=== PATIENT | female | born 1955 | race Caucasian/White ===

== ENCOUNTER → 2019-01-14 | Outpatient (CLI) | payer OTHER ==
[2019-01-14 10:22] LABS: ABSOLUTE NEUTROPHILS 3.3 thou/uL (1.4-8.2); BASOPHILS 1.1 % (0.0-2.0); HEMATOCRIT 38.5 % (37.0-47.0); HEMOGLOBIN 13.1 gm/dL (12.0-15.0); LYMPHOCYTES 23.7 % (24.0-44.0); MCH 31.6 pg (26.0-34.0); MCHC 33.9 g/dL (28.0-37.0); MCV 93.1 fL (80.0-100.0); MONOCYTES 8.4 % (1.0-8.0); PLATELET COUNT 197 thou/uL (150-400); POLYS 59.8 % (36.0-66.0); RBC 4.14 mil/uL (4.20-5.00); RDW 13.4 % (10.5-14.5); WBC 5.5 thou/uL (4.0-11.0)
[2019-01-14 10:40] LABS: ALBUMIN 4.1 g/dL (3.4-5.0); CREATININE 0.9 mg/dL (0.6-1.0); TOTAL BILIRUBIN 0.3 mg/dL (<0.1-1.0); TOTAL PROTEIN 6.3 g/dL (6.4-8.2)
== END ==
LOC: CAT 09:45
PROVIDERS: Internal Medicine Cardiovascular Disease
DX: I48.91 Unspecified atrial fibrillation (principal); J84.10 Pulmonary fibrosis, unspecified; R59.9 Enlarged lymph nodes, unspecified

== ENCOUNTER 2019-01-25 06:45 | Observation (INO) | payer OTHER ==
[~2019-01-25] VITALS: Ht 172.7 cm; Wt 73.5 kg
[2019-01-25] VITALS (12 sets, daily range): BP systolic 112–132; BP diastolic 65–80
[2019-01-25 07:30] LABS: ABSOLUTE NEUTROPHILS 2.5 thou/uL (1.4-8.2); BASOPHILS 1.4 % (0.0-2.0); HEMATOCRIT 36.8 % (37.0-47.0); HEMOGLOBIN 12.8 gm/dL (12.0-15.0); LYMPHOCYTES 28.4 % (24.0-44.0); MCH 31.9 pg (26.0-34.0); MCHC 34.7 g/dL (28.0-37.0); MONOCYTES 9.2 % (1.0-8.0); PLATELET COUNT 180 thou/uL (150-400); RBC 4.01 mil/uL (4.20-5.00); RDW 13.1 % (10.5-14.5); WBC 4.8 thou/uL (4.0-11.0)
[2019-01-25 07:35] LABS: CALCIUM 8.8 mg/dL (8.5-10.1); POTASSIUM 4.1 mmol/L (3.5-5.1)
[2019-01-25 07:42] LABS: TOTAL BILIRUBIN 0.4 mg/dL (<0.1-1.0); TOTAL PROTEIN 6.5 g/dL (6.4-8.2)
[2019-01-25 07:43] LABS: APTT 28.9 Seconds (24.5-32.8); PROTIME 10.9 Seconds (9.3-11.4)
[2019-01-25] MEDS ORDERED: ELIQUIS5 MG PO (07:47)
[2019-01-25] MEDS ORDERED: LAMOTRIGINE150 MG PO (07:49)
[2019-01-25] MEDS ORDERED: COZAAR 25 MG TA25 M2 PO (07:50)
[2019-01-25] MEDS ORDERED: METOPROLOL SUCC25 M1 PO (07:51)
[2019-01-25] MEDS ORDERED: TRILEPTAL300 MG PO (07:51)
[2019-01-25] MEDS ORDERED: PAXIL10 MG PO (07:53)
[2019-01-25] MEDS ORDERED: LYRICA 75 MG CA75 MG PO (07:55)
[2019-01-25] MEDS ORDERED: SEROQUEL 50 MG50 MG PO (07:56)
--- NOTE | 2019-01-25 19:43 | NUR ---
RECIEVED VIA BED, ALERT AND ORIENTED X4. VSS AND SR ON THE MONITOR. RT GRION DCI. PATIENT TOLERATED DIET WELL.CASPER D/CIED. AND WILL CONTINUE WITH POC.
[2019-01-26 00:40] VITALS: BP 122/95
[2019-01-26 04:54] VITALS: BP 134/85
--- NOTE | 2019-01-26 06:16 | NUR ---
ASSUME CARE 1900. PT/VITALS STABLE. DENIES ANY PAIN. UP AD PANCHO. ADEQUATE REST NOTED THROUGHT THE NIGHT. PT SR THROUGHOUT NIGHT POST ABLATION. RIGHT GROIN WITH MILD BRUISING AND DRAINAGE. SITE IS SOFT WITH NO HEMATOMA. WILL CONTINUE TO MONITOR AND FOLLOW WITH POC. PLAN IS POSSIBLE DISCHARGE HOME TODAY
[2019-01-26 07:18] VITALS: BP 140/76
[2019-01-26 10:12] VITALS: BP 140/76
--- NOTE | 2019-01-26 10:51 | NUR ---
ASSUMED CARE AT SHIFT CHANGE, ALERT AND ORIENTED X4. S/B DR SILVESTRE. DISCHARGE AND MEDICATIONS INSTRUCTIONS GIVEN TO PATIENT, AND PATIENT VERBALIZED UNDERSTANDING. AND PATIENT DISCHARGING HOME.
--- NOTE | 2019-02-01 14:17 | D ---
[facility] [place] [address] DISCHARGE SUMMARY Name: KARELY SCHNEIDER Room #: 214-P [facility] Richard Ruby#: [id number] Admission: 01/25/19 ������������������ Attend Phys: Serafin Roger MD Discharge: 01/26/19 ������������������ Date of : 51 Report #: [id number] THIS REPORT FOR: //name// CC: Serafin Roger Chasity Wilkerson DATE OF SERVICE: 01/26/2019 DISCHARGE DIAGNOSES: 1. Atrial fibrillation. 2. Atrial flutter. PROCEDURES PERFORMED: 1. Atrial fibrillation ablation. 2. Atrial flutter ablation. HISTORY OF PRESENT ILLNESS: The patient is a 63-year-old female with history of AFib, atrial flutter despite medical therapy who is here for an ablation. She underwent successful AFib ablation and atrial flutter ablation. HOSPITAL COURSE: She was monitored in the CCU overnight. She did well with no issues. On the day of discharge, she denied any chest pain, shortness of breath or groin discomfort. PHYSICAL EXAMINATION: GENERAL: No acute distress. CARDIOVASCULAR: Regular rate and rhythm with no murmurs, rubs, or gallops. LUNGS: Clear to auscultation bilaterally. ABDOMEN: Soft, nontender. EXTREMITIES: There is no clubbing, cyanosis, edema and her right groin showed no significant hematoma and some mild bruising. VITAL SIGNS: Her vitals were stable and on telemetry she remained in sinus rhythm throughout the evening. As such, she was deemed stable for discharge home with instructions to follow up with my nurse practitioner in 2 weeks and with me in 3 months. I have discussed her CT scan findings and I have recommended that she follow up with her primary care physician who can set her up to see Pulmonary for further evaluation. She will be discharged on her same home medications, which includes Eliquis therapy and metoprolol. ��������������������������������������������� <ELECTRONICALLY SIGNED> ���������������������������������������� By: Serafin Roger MD ��������������������������������������������� 02/01/19 1417 [id number] Serafin Roger MD /nt
--- NOTE | 2019-02-15 14:32 | P ---
[facility] [place] [address] PROCEDURE REPORT Name: KARELY SCHNEIDER Room #: 214-P [facility] Richard Ruby#: [id number] Admission: 01/25/19 ������������������ Attend Phys: Serafin Roger MD Discharge: 01/26/19 ������������������ Date of : 51 Report #: [id number] THIS REPORT FOR: //name// CC: Serafin Roger Chasity Nancyrhona PREOPERATIVE DIAGNOSIS: Atrial fibrillation. POSTOPERATIVE DIAGNOSES: Atrial fibrillation and atrial flutter. PROCEDURES PERFORMED: 1. AFib ablation, CPT code 14986. 2. Program stimulation and pacing after IV drug infusion, CPT code 52803. 3. 3D mapping, CPT code 32773. 4. Intracardiac echo, CPT code 83805. 5. Focal ablation, CPT code 79417. HISTORY: The patient is a 63-year-old female with history of atrial fibrillation and atrial flutter, here for ablation. DESCRIPTION OF PROCEDURE: The patient was brought to the EP laboratory in fasting and sedated state, prepped and draped in a sterile fashion. I then injected lidocaine at the right groin region and obtained access through the right femoral vein x 3. I placed 8, 9 and 7-Malian short sheath in the right femoral vein using the modified Seldinger technique. Next, under fluoroscopy, I placed a decapolar catheter easily in the coronary sinus and an ice catheter in the right atrium. Using intracardiac ultrasound, I created a detailed 3D geometry of the left atrium, which we then merged with the CT scan. The coronary sinus catheter was used to perform left atrial pacing and recording. Next, the patient was systemically heparinized and a transseptal was performed using an SL1 sheath and a [place] needle and the transseptal was straightforward. I then placed a Lasso catheter and created a detailed 3D voltage map of the left atrium and then I exchanged the SL1 sheath for the cryo sheath and cryoballoon. Next, I had difficulty getting the balloon into the superior branch of the vessel. I preformed multiple freezes with poor temps. Eventually, I got the balloon to sit into the true left superior branch of the left common ostium. At this point, we got temperatures of -38 degrees and the vein isolated within 58 seconds. A second 3-minute freeze was performed to ensure isolation. The left common ostium was clearly then isolated. I then turned my attention to the right superior pulmonary vein and performed a 4-minute, followed by a 2-minute freeze and the vein was noted to be isolated after pulling the catheter back. I then turned my attention to the right inferior pulmonary vein. I performed a 4-minute freeze and a 2-minute freeze. The vein isolated within 40 seconds of [facility] [address] [place] [address] PROCEDURE REPORT Name: KARELY SCHNEIDER Room #: 214-P [facility] Ruby#: [id number] Admission: 01/25/19 ������������������ Attend Phys: Serafin Roger MD Discharge: 01/26/19 ������������������ Date of : 51 Report #: [id number] the first freeze. Next, a basic EP study was performed. AV block was noted at 390 milliseconds and AV eri ERP was noted at 340 milliseconds at a [address] cycle length. Next, isoproterenol was initiated at 2 mcg per minute and testing was continued. AV block was noted at 330 milliseconds. Atrial ERP was noted at 370 milliseconds at a [address] cycle length and I could not induce any atrial fibrillation or atrial flutter. Given his history of atrial flutter, we proceeded with atrial flutter ablation. All catheters were pulled back to the right atrium. Using a Biosense Bates ablation catheter and a ramp sheath, a continuous drag lesion was performed along the cavotricuspid isthmus. Several lines were created and post-ablation, there was evidence of bidirectional block. As such, all catheters and sheaths were then pulled. Hemostasis was obtained and the patient awoke neurologically and hemodynamically intact, with no complications and no significant bleeding. There were no procedure-related complications. CONCLUSIONS: 1. Successful AFib ablation with isolation of the 4 pulmonary veins. 2. Successful atrial flutter ablation with evidence of bidirectional block. 3. Normal EP study with no inducible arrhythmias on or off isoproterenol. ��������������������������������������������� <ELECTRONICALLY SIGNED> ���������������������������������������� By: Serafin Roger MD ��������������������������������������������� 02/15/19 1432 [id number] Serafin Roger MD /nt
== END 2019-01-26 11:43 | disposition home or self-care (01) ==
LOC: CATH 06:45 → 2N 13:20
PROVIDERS: ADMIT Internal Medicine Cardiovascular Disease
DX: I48.91 Unspecified atrial fibrillation (principal); I48.92 Unspecified atrial flutter
CPT/HCPCS: 62110; 62900; 65020; 65040; 70005